=== PATIENT | male | born 1975 | race Two or more races ===

== ENCOUNTER 2023-03-10 14:27 | Outpatient (OUT) | payer OTHER, SELFPAY ==
--- NOTE | 2023-03-10 14:34 | ECG_ITS ---
[facility] Test Date: 2023-03-10 Pat Name: Shin Barrow Department: Room: - Gender: Male Territory Sales Consultant: : 1975 Requested By: JESSICA WING Order Number: [id number] Reading MD: GHADA TRAYLOR Measurements Intervals [place] Rate: 56 P: 82 [place]: 167 QRS: 63 QRSD: 110 T: 63 QT: 428 QTc: 415 Interpretive Statements SINUS BRADYCARDIA No previous ECG available for comparison Electronically Signed On 03-11-2023 7:09:05 EDT by GHADA TRAYLOR
[2023-03-10 15:23] LABS: Eosinophils Absolute Auto 0.3 10^3/uL (0.0-0.7); Eosinophils Percent Auto 6.1 % (0.9-7.0); Hemoglobin 13.4 g/dL (14.0-18.0); Immature Granulocytes Abs Auto 0.01 10^3/uL (0.00-0.03); Immature Granulocytes Pct Auto 0.2 % (0.0-0.5); Lymphocytes Absolute Auto 1.8 10^3/uL (1.2-3.8); Mean Corpuscular HGB Conc 32.7 g/dL (29.9-35.2); Mean Corpuscular Hemoglobin 28.6 pg (25.9-34.0); Mean Corpuscular Volume 87.4 fL (80.0-94.0); Mean Platelet Volume 9.3 fL (9.5-13.5); Monocytes Absolute Auto 0.4 10^3/uL (0.3-0.8); Monocytes Percent Auto 8.4 % (1.7-12.0); Neutrophils Absolute Auto 2.6 10^3/uL (1.4-6.5); Neutrophils Percent Auto 50.3 % (43.0-75.0); Platelet Count 374 10^3/uL (150-450); Red Blood Count 4.69 10^6/uL (4.70-6.10); Red Cell Distribution Width 12.7 % (11.0-15.0); White Blood Count 5.1 10^3/uL (4.0-11.0)
[2023-03-10 15:37] LABS: Partial Thromboplastin Time 29.3 sec (22.3-36.2)
[2023-03-10 15:38] LABS: Anion Gap 10.9; BUN Creatinine Ratio 16.8; Calcium 8.9 mg/dL (8.5-10.1); Carbon Dioxide 28.9 mmol/L (21.0-32.0); Chloride 98 mmol/L (98-107); Estimated GFR (African America >60 (>=60); Estimated GFR (Non-African Ame >60 (>=60); Glucose 89 mg/dL (74-106); Potassium 3.8 mmol/L (3.5-5.1); Sodium 134 mmol/L (136-145)
[2023-03-10 15:56] LABS: INR 0.97; Prothrombin Time 10.3 sec (9.0-11.6)
== END 2023-03-10 14:28 | disposition home or self-care (01) ==
PROVIDERS: PCP Family Medicine; Visit Provider Urology
DX: Z01.810 Encounter for preprocedural cardiovascular examination (principal); Z01.812 Encounter for preprocedural laboratory examination; R97.20 Elevated prostate specific antigen [PSA]; Z80.42 Family history of malignant neoplasm of prostate
CPT/HCPCS: 36415; 80048; 85025; 85610; 85730; 93005

== ENCOUNTER 2023-03-11 06:21 | Day surgery (SDC) | payer OTHER, SELFPAY ==
[2023-03-10 14:51] VITALS: BP 116/77; PULSE 56; RESP 14; TEMP 36.4; O2SAT 100; BMI 26.5
--- NOTE | 2023-03-11 06:47 | US_ITS ---
[address] [address] Patient Name: CHIQUITA HOPKINS MRN: [id number] date: 1975 Sex: M Assigned Patient Location: [facility] Current Patient Location: [facility] Accession/Order Number: [id number] Exam Date: 03/11/2023 07:45 Report Date: 03/12/2023 00:16 At the request of: JESSICA PURCELL Procedure: US prostate EXAMINATION: US prostate HISTORY: TRUS BIOPSY COMPARISON: No relevant comparison available. TECHNIQUE: Ultrasound exam for the prostate with an endorectal transducer was performed during biopsy performed by Dr. Purcell utilizing real-time and color duplex Doppler sonography. FINDINGS: ESTIMATED SIZE: 5.3 x 5.3 x 2.8 cm (41 mL), grade 2 APPEARANCE: Enlarged heterogeneous prostate. OTHER: 8 biopsies obtained of left aspect of prostate, and 8 on right. US/US prostate IMPRESSION: 1. Ultrasound-guided prostate biopsy performed by Dr. Purcell. Electronically authenticated by: FRANKLIN LUNA Date: 03/12/2023 00:16
[2023-03-11 06:57] VITALS: BP 116/63; PULSE 68; RESP 20; TEMP 36.2; O2SAT 96; BMI 26.8
[2023-03-11] MEDS: LACTATED RINGER'S SOLUTION 1,000 ML 50 ML IV (07:23)
[2023-03-11] MEDS: GENTAMICIN SULFATE 120 MG in 0.9 % SODIUM CHLORIDE 100 ML 206 MG IV (07:24)
[2023-03-11] MEDS: CEFAZOLIN SODIUM/DEXTROSE,ISO 1 GM/50 ML IV.SOLN IV (07:50)
[2023-03-11] MEDS: LIDOCAINE 2% JELLY 20 ML UR (07:50)
[2023-03-11 08:02] VITALS: BP 131/65; PULSE 69; RESP 16; O2SAT 97
--- NOTE | 2023-03-11 08:07 | PM.URSON ---
Urology Surgery Operative Note Operative Note Procedure Date: 03/11/23 Time Out Performed: yes Pre-op Diagnosis: elevated PSA; direct family history of prostate cancer Post-op Diagnosis: same as pre-op Procedures performed: #1. Transrectal ultrasound of the prostate.#2. Prostate needle biopsies ?20. Anesthesia: MAC and local Primary Surgeon: Femi Purcell Complications: none Estimated blood loss (mL): 10 Findings: no true hypoechoic areas noted by ultrasound. Specimens: prostate needle biopsies; 8 from the left side and 12 from the right side. Indications for Procedures: this gentleman has an elevated and rising PSA along with an asymmetrical prostate by digital rectal exam. No nodularity was noted. She now presents for transrectal ultrasound with biopsies. He has signed an informed consent after risks were explained to him. Some of these include bleeding, infection, sepsis and anesthesia to name a few. Detailed description of Procedure: patient was brought to the operating room and placed on the operating room table in the supine position. Timmeout was done by all parties in the room. We all agreed upon the patient's identification and the planned procedures for this patient. Maack anesthesia was then administered. He was then rotated to the left lateral decubitus position. 2 percent Xylocaine jelly was passed per rectum. The ultrasound probe was passed per rectum. The prostate was scanned in the transverse and longitudinal views. The volume was calculated to be 41 g. No true hypoechoic areas were noted. We started on the left base and went towards the apex. We divided it up into 4 levels. From each level we took 2 biopsies. We then went to the right side and did a similar maneuver except from each level we took 3 biopsies due to the asymmetry on digital rectal exam. Probe was then removed. We obtained 20 satisfactory cores. He was then transferred to the supine position and taken to PACU in stable condition.
[2023-03-11 08:25] VITALS: BP 125/84; PULSE 67; RESP 16; O2SAT 100
[2023-03-11] MEDS: KETOROLAC TROMETHAMINE 30 MG/ML VIAL IVP (08:32)
--- NOTE | 2023-03-11 08:38 | PC.NURSE ---
Pain medication order received from Dr. Purcell; used urinal when first awakening and unable to void
--- NOTE | 2023-03-11 08:39 | PC.NURSE ---
Medicated as ordered with Toradol IV
[2023-03-11 08:49] VITALS: BP 120/78; PULSE 64; RESP 16; O2SAT 100
[2023-03-11 09:20] VITALS: BP 114/95; PULSE 59; RESP 16; O2SAT 100
--- NOTE | 2023-03-11 09:28 | PC.NURSE ---
Denies urge to void
--- NOTE | 2023-03-11 09:35 | PC.NURSE ---
Voided clear yellow urine
== END 2023-03-11 09:36 | disposition home or self-care (01) ==
PROVIDERS: PCP Family Medicine; Visit Provider Urology
PROC: (CPT 55700; principal; 2023-03-11 07:30)
DX: R97.20 Elevated prostate specific antigen [PSA] (principal); Z80.42 Family history of malignant neoplasm of prostate
CPT/HCPCS: 55700; 36415; 76872; 88305; J2704

== ENCOUNTER 2024-01-25 08:02 | Outpatient (OUT) | payer OTHER, SELFPAY ==
--- NOTE | 2024-01-25 08:06 | ECG_ITS ---
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
[2024-01-25 08:44] LABS: Basophils Percent Auto 0.2 % (0.2-2.0); Eosinophils Absolute Auto 0.9 10^3/uL (0.0-0.7); Eosinophils Percent Auto 15.7 % (0.9-7.0); Hematocrit 39.5 % (42.0-54.0); Immature Granulocytes Abs Auto 0.01 10^3/uL (0.00-0.03); Immature Granulocytes Pct Auto 0.2 % (0.0-0.5); Lymphocytes Absolute Auto 1.2 10^3/uL (1.2-3.8); Lymphocytes Percent Auto 22.2 % (20.5-60.0); Mean Corpuscular HGB Conc 32.9 g/dL (29.9-35.2); Mean Corpuscular Volume 88.2 fL (80.0-94.0); Monocytes Absolute Auto 0.5 10^3/uL (0.3-0.8); Monocytes Percent Auto 8.6 % (1.7-12.0); Neutrophils Percent Auto 53.1 % (43.0-75.0); Platelet Count 293 10^3/uL (150-450); Red Blood Count 4.48 10^6/uL (4.70-6.10); White Blood Count 5.6 10^3/uL (4.0-11.0)
--- NOTE | 2024-01-25 08:53 | P.GSHP_ITS ---
History of Present Illness History of Present Illness Chief complaint: elevated psa/ abn pet scan Narrative: Patient presents for preadmission testing. The patient had a prostate biopsy here at the [facility] last February, he states his PSA is still elevated, he had an abnormal PSMA PET scan and he is now scheduled for another biopsy. The patient states he does notice frequency with urination and hesitancy with starting the stream. He denies dysuria, hematuria, abdominal pain, nausea, vomiting, chest pain, shortness of breath, dyspnea on exertion, or any other complaints. The patient states he has had no major health changes since his last visit here other than starting a medication for his high cholesterol. He is very active and is an avid runner. Review of Systems ROS Narrative REVIEW OF SYSTEMS: Negative except as stated in HPI, ten or more systems reviewed. Constitutional: No fever, chills, weakness ENT: No sore throat or epistaxis Cardiovascular: No edema, chest pain, palpitations, or activity intolerance Respiratory: No shortness of breath, cough, or wheezing Musculoskeletal: No joint pain or swelling Gastrointestinal: No abdominal pain, constipation, diarrhea, or vomiting Genitourinary: No dysuria or hematuria Neurological: No numbness, tingling, weakness, or headache Psychiatric: No mood changes [facility] Medical History (Updated 01/25/24 @ 08:23 by Lori Shafer NP) High cholesterol ?E78.00 - Pure hypercholesterolemia, unspecified (ICD-10) COVID-19 ?U07.1 - COVID-19 (ICD-10) Heartburn ?R12 - Heartburn (ICD-10) Postoperative nausea and vomiting ?R11.2 - Nausea with vomiting, unspecified (ICD-10) ?Z98.890 - Other specified postprocedural states (ICD-10) Epididymal cyst ?N50.3 - Cyst of epididymis (ICD-10) MRSA (methicillin resistant staph aureus) culture positive ?Z22.322 - Carrier or suspected carrier of Methicillin resistant Staphylococcus aureus (ICD-10) Elevated PSA ?R97.20 - Elevated prostate specific antigen [PSA] (ICD-10) Surgical History (Updated 01/25/24 @ 08:15 by Lori Shafer NP) H/O prostate biopsy (03/11/23) ?Z98.890 - Other specified postprocedural states (ICD-10) History of appendectomy ?Z90.49 - Acquired absence of other specified parts of digestive tract (ICD- 10) H/O bursectomy ?Z98.890 - Other specified postprocedural states (ICD-10) Family History (Updated 03/10/23 @ 14:06 by Lori Shafer NP) Other High cholesterol Hypertension Prostate cancer Social History (Updated 03/10/23 @ 14:43 by Lori Shafer NP) Within the past year, how often did you have a drink containing alcohol: monthly or less Smoking status: Never smoker Non-prescribed substance use: denies use Previous occupational history: Medical Doctor Highest level of school completed/degree received: Doctoral degree Meds Home Medications and Allergies Home Medications ?Medication ?Instructions ?Recorded ?Confirmed ?Type dextroamphetamine-amphetamine 30 30 mg PO DAILY 03/10/23 01/25/24 History mg tablet (Adderall) esomeprazole magnesium 40 mg 40 mg PO DAILY 03/10/23 01/25/24 History capsule,delayed release dutasteride 0.5 mg capsule 0.5 mg PO DAILY 01/25/24 01/25/24 History rosuvastatin 20 mg tablet 20 mg PO DAILY 01/25/24 01/25/24 History tamsulosin 0.4 mg capsule 0.4 mg PO Q24H 01/25/24 01/25/24 History Allergies Allergy/AdvReac Type Severity Reaction Status Date / Time No Known Drug Allergies Allergy Verified 01/25/24 08:18 Exam Narrative Exam Narrative: Constitutional: Awake, alert, comfortable, well-appearing, nontoxic, interactive, vital signs as charted Head: Normocephalic, atraumatic Neck: Supple, normal appearance, normal range of motion Respiratory: No respiratory distress, breath sounds clear Cardiovascular: Regular rate and rhythm, strong and regular heart tones Abdomen: no CVA tenderness Musculoskeletal: Normal gait, no swelling or edema Skin: No rashes or induration, no lesions, only visible skin inspected Neuro: No neurological deficits, normal sensation Psychiatric: Oriented ?3, normal affect Assessment and Plan Assessment and Plan (1) Elevated PSA: Plan TRUS/biopsy scheduled with Dr. Purcell February 03, 2024. Patient had an abnormal preliminary EKG which was compared to his previous EKG dated March 10, 2023, and appears unchanged with sinus bradycardia. EKG is reviewed with Dr. Nathan and he agrees.
[2024-01-25 08:58] LABS: Anion Gap 11.3; BUN Creatinine Ratio 14.6; Calcium 8.8 mg/dL (8.5-10.1); Carbon Dioxide 29.9 mmol/L (21.0-32.0); Chloride 103 mmol/L (98-107); Estimated GFR (African America >60 (>=60); Estimated GFR (Non-African Ame >60 (>=60); Glucose 90 mg/dL (74-106); Potassium 4.2 mmol/L (3.5-5.1); Sodium 140 mmol/L (136-145)
[2024-01-25 09:04] LABS: Partial Thromboplastin Time 27.7 sec (22.3-36.2); Prothrombin Time 9.8 sec (9.0-11.6)
[2024-01-25 09:12] LABS: INR <0.93
== END 2024-01-25 08:03 | disposition home or self-care (01) ==
LOC: PST 08:03
PROVIDERS: PCP Family Medicine; Visit Provider Urology
DX: Z01.810 Encounter for preprocedural cardiovascular examination (principal); Z01.812 Encounter for preprocedural laboratory examination; Z01.818 Encounter for other preprocedural examination; R97.20 Elevated prostate specific antigen [PSA]
CPT/HCPCS: 80048; 85025; 85610; 85730; 93005; G0463

== ENCOUNTER 2024-02-03 06:58 | Day surgery (SDC) | payer OTHER, SELFPAY ==
[2024-01-25 08:30] VITALS: BP 118/80; PULSE 68; TEMP 36.2; O2SAT 97; BMI 27.6
[2024-02-03 07:10] VITALS: BP 107/64; PULSE 71; TEMP 36.2; O2SAT 97; BMI 27.7
[2024-02-03] MEDS: LACTATED RINGER'S SOLUTION 1,000 ML 50 ML IV (07:30)
[2024-02-03] MEDS: GENTAMICIN SULFATE 120 MG in 0.9 % SODIUM CHLORIDE 100 ML 206 MG IV (07:31)
--- NOTE | 2024-02-03 07:59 | US_ITS ---
The [address] [address] Patient Name: CHIQUITA HOPKINS MRN: [id number] date: 1975 Sex: M Assigned Patient Location: [facility] Current Patient Location: [facility] Accession/Order Number: [id number] Exam Date: 02/03/2024 08:00 Report Date: 02/03/2024 09:05 At the request of: JESSICA PURCELL Procedure: US prostate EXAMINATION: US prostate HISTORY: surgery COMPARISON: No relevant comparison available. TECHNIQUE: Ultrasound exam for the prostate with an endorectal transducer was performed utilizing real-time and color duplex Doppler sonography. FINDINGS: Prostate biopsy performed by Dr. Purcell. A needle is seen traversing multiple portions of the prostate gland. The prostate gland measures 4.4 x 2.4 x 4.1 cm a volume of 22.8 mL. Lobular contour with no focal prostate mass. US/US prostate IMPRESSION: Images from a transrectal ultrasound guided prostate biopsy Electronically authenticated by: SAFIA CARMICHAEL Date: 02/03/2024 09:05
[2024-02-03] MEDS: CEFAZOLIN SODIUM/DEXTROSE,ISO 1 GM/50 ML IV.SOLN IV (08:14)
[2024-02-03] MEDS: LIDOCAINE 2% JELLY 20 ML UR (08:15)
[2024-02-03 08:28] VITALS: BP 95/60; PULSE 70; TEMP 36.1; O2SAT 99
--- NOTE | 2024-02-03 08:31 | P.URON_ITS ---
Urology Surgery Operative Note Operative Note Procedure Date: 02/03/24 Time Out Performed: yes Pre-op Diagnosis: Elevated PSA; family history of prostate cancer Post-op Diagnosis: same as pre-op Procedures performed: 1. Transrectal ultrasound of the prostate. 2. Prostate needle biopsies. Anesthesia: MAC and local Primary Surgeon: Femi Purcell Complications: None Estimated blood loss (mL): 10 Findings: Slightly hypoechoic area mid posterior Specimens: From the left side 8 biopsies going from the base towards the apex. From the right side 10 biopsies going from the base towards the apex. 2 extra biopsies were taken at the mid posterior aspect. Drains: None Indications for Procedures: This gentleman has a history of elevated PSA for which he has had a negative prostate MRI and a prostate biopsy doneIn 2022.He had a recent PSMA PET CT scan which showed very subtle accumulation in the posterior mid aspect of the prostate. It was uncertain if this was simply physiologic or truly an area of concern.His PSA is still elevated at 3.7. His REMI is asymmetric but benign. He now presents for repeat transrectal ultrasound and biopsies. He has signed an informed consent after risks were explained. Some of these include bleeding, infection, urosepsis and anesthesia to name a few. Detailed description of Procedure: The patient was brought to the operating room and kept on the [facility] bed. He was rotated in the left lateral decubitus position. Timeout was done by all parties in the room. We all agreed upon the patient's identification and the planned procedures for this patient. MAC anesthesia was then administered. 2% lidocaine gel was passed per rectum. The ultrasound probe was passed per rectum. The prostate was scanned in the transverse and longitudinal views. The volume was calculated to be about 23 g. A slightly hypoechoic area could be seen in the posterior mid aspect and that seemed to correspond with thePSMA PET scan. While in the sagittal view we started at the left base and divided it up into 4 levels and went from the base towards the apex taking 2 biopsies from each level. We then went to the right side and did a similar maneuver. At the levels 2 and 3 which corresponded to the posterior mid aspect we took 3 biopsies from each level. At level 4 we took 2 biopsies. These were all submitted for permanent sections. The probe was then removed. Digital pressure was held on the prostate for 1 minute. He was then rotated in the supine position. He was then transferred to PACU in stable condition. He was instructed to finish his antibiotic course. Also, if he were to get a fever near 101 and/or shaking chills that do not stop he was instructed to present to the ER for IV antibiotics.
[2024-02-03 08:43] VITALS: BP 113/76; PULSE 70; O2SAT 98
[2024-02-03] MEDS: KETOROLAC TROMETHAMINE 30 MG/ML VIAL IVP (08:51)
[2024-02-03 08:58] VITALS: BP 117/88; PULSE 68; O2SAT 98
[2024-02-03 09:13] VITALS: BP 119/64; PULSE 69; O2SAT 98
[2024-02-03 09:21] VITALS: BP 105/77; PULSE 66; O2SAT 98
== END 2024-02-03 09:21 | disposition home or self-care (01) ==
PROVIDERS: PCP Family Medicine; Visit Provider Urology
PROC: (CPT 902; principal; 2024-02-03 08:00)
DX: R97.20 Elevated prostate specific antigen [PSA] (principal); Z80.42 Family history of malignant neoplasm of prostate; N40.1 Benign prostatic hyperplasia with lower urinary tract symptoms; R35.1 Nocturia; N39.43 Post-void dribbling; N41.1 Chronic prostatitis
CPT/HCPCS: 55700; 36415; 76872; 88305; J0690; J1580; J1885; J2250; J2405; J2704